=== PATIENT | female | born 1980 | race Hispanic/Latino ===

== ENCOUNTER 2018-03-27 14:37 | Emergency (ER) | payer BC, SELFPAY | END 2018-03-27 15:50 | disposition home or self-care (01) | LOC: NAV ERS 14:37 | DX: J06.9 Acute upper respiratory infection, unspecified (principal); F17.210 Nicotine dependence, cigarettes, uncomplicated | CPT/HCPCS: 87081; 87430; 99283 ==

== ENCOUNTER 2019-07-20 10:29 | Emergency (ER) | payer SELFPAY ==
--- NOTE | 2019-07-20 11:21 | RAD ---
RADIOGRAPH CHEST 2 VIEWS: DATE: 07/20/2019 HISTORY: 39-year-old female with cough, fever, and chest congestion FINDINGS: There is no airspace density, pulmonary edema, pleural effusion, pneumothorax, or cardiomegaly. IMPRESSION: No acute cardiopulmonary findings.
== END 2019-07-20 11:59 | disposition home or self-care (01) ==
LOC: NAV ERS 10:29
DX: J10.1 Influenza due to other identified influenza virus with other respiratory manifestations (principal); F17.210 Nicotine dependence, cigarettes, uncomplicated; J20.8 Acute bronchitis due to other specified organisms
CPT/HCPCS: 71046; 87804

== ENCOUNTER 2021-04-18 21:03 | Emergency (ER) | payer SELFPAY | END 2021-04-18 21:30 | disposition home or self-care (01) | LOC: NAV ERS 21:03 | DX: K03.81 Cracked tooth (principal); K02.9 Dental caries, unspecified; F17.210 Nicotine dependence, cigarettes, uncomplicated | CPT/HCPCS: 99282 ==

== ENCOUNTER 2022-12-21 15:12 | Emergency (ER) | payer BC, SELFPAY ==
[2022-12-21] MEDS ORDERED: Ondansetron PF 4 MG/2 ML Vial ONE (15:35)
[2022-12-21 15:38] LABS: Bilirubin Small (Negative); Blood, Urine Small (Negative); Glucose, Urine (Dipstick) Negative (Negative); Ketone, Urine Negative (Negative); Leukocyte Negative (Negative); Nitrite Negative (Negative); Protein, Urine (Dipstick) 30 mg/dL (Neg-Trace); Specific Gravity, Urine 1.025 (1.005-1.030); pH, Urine 6.5 (5.0-9.0)
[2022-12-21 15:49] LABS: #Eosinphils 0.1 thou/uL (0.0-0.7); #Lymphocytes 1.4 thou/uL (1.20-3.40); #Monocytes 0.4 thou/uL (0.11-0.59); #Neutrophils 6.2 thou/uL (1.40-6.50); %Basophils 0.3 % (0.0-1.0); %Eosinophils 0.9 % (0.0-10.0); %Lymphocytes 17.2 % (21.0-51.0); %Monocytes 4.5 % (0.0-10.0); %Neutrophils 77.1 % (42.0-75.0); Hemoglobin 13.2 g/dL (12.0-16.0); Mean Corpuscular HGB CONC 30.5 g/dL (32.0-36.0); Mean Corpuscular Hemoglobin 25.3 pg (27.0-31.0); Mean Corpuscular Volume 83.1 fl (78.0-98.0); Mean Platelet Volume 8.3 fL (7.4-10.4); Platelet Count 190 10x3/uL (130-400); RBC Distribution Width 12.8 % (11.5-14.5); White Blood Cell (WBC) Count 8.1 10x3/uL (4.8-10.8)
[2022-12-21 15:50] LABS: Clarity Hazy (Clear)
[2022-12-21 15:51] LABS: Bacteria/HPF 2+ HPF (None Seen); CAUTI Indications for Culture Fever or rigors; Squamous Epithelial 0-3 HPF (0-3)
[2022-12-21 15:52] LABS: Urine Culture Reflex No No
[2022-12-21] MEDS ORDERED: Morphine 4 MG/ML VIAL ONE (15:52)
[2022-12-21 16:10] LABS: ALT (SGPT) 40 U/L (8-55); AST (SGOT) 28 U/L (5-34); Albumin 3.8 g/dL (3.5-5.0); Alkaline Phosphatase 73 U/L (40-110); Anion Gap 11 mmol/L (10-20); BUN (Urea Nitrogen) 5 mg/dL (7.0-18.7); Bilirubin, Total 1.3 mg/dL (0.2-1.2); Calc. Creatinine Clearance 0 mL/min (70-130); Calcium 8.9 mg/dL (7.8-10.44); Carbon Dioxide 25 mmol/L (22-29); Chloride 103 mmol/L (98-107); Estimated GFR 92; Globulin 3.6 g/dL (2.4-3.5); Glucose 126 mg/dL (70-105); Lipase 9 U/L (8-78); Potassium 3.4 mmol/L (3.5-5.1); Protein, Total 7.4 g/dL (6.0-8.3); Sodium 136 mmol/L (136-145)
== END 2022-12-21 17:05 | disposition home or self-care (01) ==
LOC: NAV ERS 15:12
DX: N39.0 Urinary tract infection, site not specified (principal); K52.9 Noninfective gastroenteritis and colitis, unspecified; K29.70 Gastritis, unspecified, without bleeding; R03.0 Elevated blood-pressure reading, without diagnosis of hypertension; F17.210 Nicotine dependence, cigarettes, uncomplicated
CPT/HCPCS: 80053; 81001; 83690; 85025; 87086; 87804; 96361; 96374; 96375; J2270; J2405

== ENCOUNTER 2024-07-30 17:23 | Emergency (ER) | payer SELFPAY ==
[2024-07-30] MEDS ORDERED: diphenhydrAMINE 50 MG/ML VIAL ONE (18:29)
[2024-07-30] MEDS ORDERED: Ketorolac Tromethamine 30 MG (1 mL) VIAL ONE (18:29)
[2024-07-30] MEDS ORDERED: Prochlorperazine 10 MG/2 ML VIAL ONE (18:29)
[2024-07-30] MEDS ORDERED: Sodium Chloride 0.9% 1,000 ML ONE (18:30)
== END 2024-07-30 20:45 | disposition home or self-care (01) ==
LOC: NAV ERS 17:23
DX: G43.909 Migraine, unspecified, not intractable, without status migrainosus (principal); F17.210 Nicotine dependence, cigarettes, uncomplicated
CPT/HCPCS: 96365; 96375; J0780; J1200; J1885; J7030

== ENCOUNTER 2025-03-24 05:55 | Emergency (ER) | payer BC ==
[2025-03-24] MEDS ORDERED: Tetracaine 0.5% PF 4 ML BOT ONE (06:00)
== END 2025-03-24 06:15 | disposition home or self-care (01) ==
LOC: NAV ERS 05:55
DX: T16.1XXA Foreign body in right ear, initial encounter (principal); R03.0 Elevated blood-pressure reading, without diagnosis of hypertension; F17.210 Nicotine dependence, cigarettes, uncomplicated; Z79.899 Other long term (current) drug therapy; W44.F4XA Insect entering into or through a natural orifice, initial encounter
CPT/HCPCS: 99282